=== PATIENT | female | born 1925 | race Caucasian/White ===

== ENCOUNTER 2016-12-05 16:14 | Emergency (ER) | payer MEDICARE, OTHER, MEDICAID ==
[~2016-12-05] VITALS: Ht 162.6 cm; Wt 81.6 kg
[2016-12-05] MEDS ORDERED: TYLENOL325 MG PO (16:28)
[2016-12-05] MEDS ORDERED: CALCIUM 600 +1 EAC7 PO (16:30)
[2016-12-05] MEDS ORDERED: BENADRYL25 MG PO (16:30)
[2016-12-05] MEDS ORDERED: PRILOSEC20 MG PO (16:30)
[2016-12-05] MEDS ORDERED: FOSAMAX70 MG PO (16:31)
[2016-12-05] MEDS ORDERED: PREDNISONE2.5 MG PO (16:32)
== END 2016-12-05 17:13 | disposition short-term general hospital (02) ==
LOC: ER 16:14
DX: M25.552 Pain in left hip (principal); K21.9 Gastro-esophageal reflux disease without esophagitis; M19.90 Unspecified osteoarthritis, unspecified site; M81.0 Age-related osteoporosis without current pathological fracture; Z88.2 Allergy status to sulfonamides; Z88.8 Allergy status to other drugs, medicaments and biological substances; Z90.710 Acquired absence of both cervix and uterus; Z98.51 Tubal ligation status; Z90.49 Acquired absence of other specified parts of digestive tract; Z96.659 Presence of unspecified artificial knee joint; Z79.899 Other long term (current) drug therapy
CPT/HCPCS: 73502-LT

== ENCOUNTER 2016-12-07 10:48 | Inpatient (IN) | payer MEDICARE, OTHER, MEDICAID ==
[~2016-12-07] VITALS: Ht 162.6 cm; Wt 81.6 kg
[~2016-12-07 10:48] MED LIST: BENADRYL25 MG PO; CALCIUM 600 +1 EAC7 PO; FOSAMAX70 MG PO; PREDNISONE2.5 MG PO; PRILOSEC20 MG PO; TYLENOL325 MG PO
[2016-12-12] MEDS ORDERED: LEVAQUIN250 MG PO (09:11)
[2016-12-12] MEDS ORDERED: TYLENOL500 MG PO ×3 (09:19→09:22)
== END 2016-12-12 09:51 | disposition home health service (06) | DRG 195 ==
LOC: INF/INJ 10:48 → IP 12:50
PROVIDERS: ADMIT Family Medicine
DX: J18.9 Pneumonia, unspecified organism (principal); M54.9 Dorsalgia, unspecified; J30.9 Allergic rhinitis, unspecified; I49.9 Cardiac arrhythmia, unspecified; H91.90 Unspecified hearing loss, unspecified ear; K21.9 Gastro-esophageal reflux disease without esophagitis; M19.90 Unspecified osteoarthritis, unspecified site; E66.3 Overweight; N39.46 Mixed incontinence; R11.2 Nausea with vomiting, unspecified; N18.9 Chronic kidney disease, unspecified
CPT/HCPCS: J2405; J2543

== ENCOUNTER → 2017-01-24 | Outpatient (CLI) | payer MEDICARE, OTHER ==
[~2017-01-24] MED LIST changes: +LEVAQUIN250 MG PO; +TYLENOL500 MG PO
== END | disposition short-term general hospital (02) ==
LOC: CLPAIN 10:08
DX: M47.26 Other spondylosis with radiculopathy, lumbar region (principal); M70.62 Trochanteric bursitis, left hip